=== PATIENT | female | born 1965 | race Caucasian/White ===

== ENCOUNTER → 2020-10-01 | Outpatient (CLI) | payer BC ==
[2016-02-02 09:01] VITALS: BP 146/79
[~2020-10-01] MED LIST: LEVO25TA4 PO; OLME1TAB21 PO; SIMV5TAB14 PO
--- NOTE | 2020-10-01 17:37 | KCIC ---
EXAM: MRI left shoulder DATE: 10/01/2020 2:35 PM COMPARISON: None INDICATION: Reason: LEFT SHOULDER PAIN / Spl. Instructions: / History: Pulling injury 11 mths ago. C ontinued upper arm pain and posterior sh pain. TECHNIQUE: Multiplanar, multisequence MRI of the left shoulder was performed without contrast. FINDINGS: No glenohumeral joint effusion. Trace subacromial-subdeltoid bursal fluid likely bursitis. AC joint i s congruent with mild lateral downsloping. No os acromiale. Type I acromion. Partial-thickness articular sided tear of the supraspinatus tendon involves approximately 50 percent tendon thickness measuring approximately 8 mm in AP dimension. Rotator cuff muscle bulk and signal is normal without fatty atrophy. Intra-articular and extra articular long head biceps tendon are intact. No discrete labral tear is identified although mild labral deformity, degeneration. Severe left shoul angel joint osteoarthritis with subchondral cystic change in the glenoid and chondral effacement. No fr acture or osteonecrosis. IMPRESSION: 1. No rotator cuff tear. 2. Severe left shoulder joint osteoarthritis. 3. Partial-thickness articular sided tear of the supraspinatus measuring 7 mm in AP dimension, 50 pe rcent tendon thickness. 4. Trace subacromial-subdeltoid bursitis. Electronically signed by: Cj Coy MD (10/01/2020 5:34 PM) SHALINI
== END ==
LOC: KCIC MRI 14:16
PROVIDERS: ATTEND Physician Assistant Medical
DX: M75.112 Incomplete rotator cuff tear or rupture of left shoulder, not specified as traumatic (principal); M19.012 Primary osteoarthritis, left shoulder
CPT/HCPCS: 73221